=== PATIENT | male | born 1980 | race Caucasian/White ===

== ENCOUNTER 2024-02-01 20:50 | Emergency (ER) | payer SELFPAY ==
--- NOTE | 2024-02-01 21:09 | ED ---
CPR HPI - General Chief Complaint: Cardiac Arrest/CPR Stated Complaint: Cardiac Arrest Time Seen by Provider: 02/01/24 21:02 Source: EMS Mode of arrival: EMS Limitations: no limitations - History of Present Illness Initial Comments: Patient is a 43-year-old gentleman presenting via EMS as a transfer from [facility] for cardiac arrest. Per report from [facility], Dr. Yen, EMS was called for shortness of breath and upon arrival to the patient's home he is to be in cardiac arrest. Patient received 2 rounds of CPR prior to arrest but viable in the hospital. ROSC was achieved and then here he received 3-4 more rounds of CPR for [place] ED. Transferring ER physician put patient on epi and nor epi drip. Patient does have a defibrillator in place. Patient was transferred with an Igel for airway. Reported to be "breathing around the ideal" at time of transfer. I was called again by Dr. Yen regarding patient's labs, stating that patient was noted of hyperkalemia with a potassium greater than 7 and seem to be in acute renal failure with a GFR of 15. Note to the ED, proximately 20 minutes prior to arrival patient went to cardiac arrest again. Patient received another 3-4 rounds of CPR and doses of epi, patient was in asystole and at 1 point in PEA but ROSC was never achieved. By the time the patient arrived to the emergency department he was still pulseless, brownish emesis was coming out from around his airway. - Related Data Allergies Allergy/AdvReac Type Severity Reaction Status Date / Time Unable to Assess Allergy Verified 02/01/24 23:45 Review of Systems ROS Statement: Those systems with pertinent positive or pertinent negative responses have been documented in the HPI. ROS Other: All systems not noted in ROS Statement are negative. Limitations: ROS unobtainable due to patients medical condition Past Medical History Past Medical History: Unable to Obtain History of Any Multi-Drug Resistant Organisms: Unobtainable Past Surgical History: Unable to Obtain Past Psychological History: Unable to Obtain Smoking Status: Unknown if ever smoked Past Alcohol Use History: Unable to Obtain Past Drug Use History: Unable to Obtain General Exam - General Exam Comments Initial Comments: PE: CONSTITUTIONAL: Ill appearing, pale, I gel in place, brown emesis in oropharynx and around I gel, unresponsive SKIN: Pale, mottling of the lower extremities EYES: Pupils round, fixed and dilated nonreactive HENT: Normocephalic, atraumatic, Igel in place NECK: , Normal appearance, atraumtic PULMONARY: Equal chest rise and fall with bagging, no spontaneous respirations CARDIOVASCULAR: No pulses palpable, asystole, pale extremities GASTROINTESTINAL: non-distended MUSCULOSKELETAL: Extremities have no gross deformity, no edema, redness, or swelling. NEUROLOGIC:_Unable to assess, unresponsive PSYCHIATRIC:[ unable to assess Unable to assess_ Limitations: no limitations Medical Decision Making - Medical Decision Making Was pt. sent in by a medical professional or institution (, PA, PHYSICS TEACHER, urgent care, hospital, or [place] health care facility...) When possible be specific @ -Patient was transferred from [facility] in [place], I discussed case with Dr. Yen, transferring physician Did you speak to anyone other than the patient for history (EMS, parent, family, police, friend...)? What history was obtained from this source @ -See above, additionally spoke with EMS personnel Did you review nursing and triage notes (agree or disagree)? Why? @ -I reviewed and agree with nursing and triage notes Were old charts reviewed (outside hosp., previous admission, EMS record, old EKG, old radiological studies, urgent care reports/EKG's, [place] health care facility records)? Report findings @ -No old charts available for review Differential Diagnosis (chest pain, altered mental status, abdominal pain women, abdominal pain men, vaginal bleeding, weakness, fever, dyspnea, syncope, headache, dizziness, GI bleed, back pain, seizure, CVA, palpatations, mental health, musculoskeletal)? @ -Differenital diagnosis remains broad over top considerations include cardiac arrest secondary to acute renal failure, respiratory arrest, heart failure, drug overdose, this is not all inclusive list EKG interpreted by me (3pts min.). @ -not performed X-rays interpreted by me (1pt min.). @ -None done CT interpreted by me (1pt min.). @ -None done U/S interpreted by me (1pt. min.). @ -None done What testing was considered but not performed or refused? (CT, X-rays, U/S, labs)? Why? @ -None What meds were considered but not given or refused? Why? @ -Considered calcium gluconate, additional IV bicarb Did you discuss the management of the patient with other professionals (professionals i.e. , PA, PHYSICS TEACHER, lab, RT, psych nurse, social welfare clerk, beef trimmer, teacher, medical officer, mental health case manager)? Give summary @ -No Was smoking cessation discussed for >3mins.? @ -No Was critical care preformed (if so, how long)? @ -No Were there social determinants of health that impacted care today? How? (Homelessness, low income, unemployed, alcoholism, drug addiction, transportat ion, low edu. Level, literacy, decrease access to med. care, retirement, rehab)? @ -No Was there de-escalation of care discussed even if they declined (Discuss DNR or withdrawal of care, Hospice)? @ -No What co-morbidities impacted this encounter? (DM, HTN, Smoking, COPD, CAD, Cancer, CVA, ARF, Chemo, Hep., AIDS, mental health diagnosis, sleep apnea, morbid obesity)? @ -None Was patient admitted / discharged? Hospital course, mention meds given and route, prescriptions, significant lab abnormalities, going to OR and other pertinent info. @ Discharged to [facility] [place]- Pt presented via EMS in full cardiac arrest. Was initially seen at transferring facility, [facility] after paramedics were called to the patient's home for shortness of breath and found the patient cardiac arrest. Patient received 2 rounds CPR prior to arrival in [place]'s emergency department. On arrival there patient had pulses but then pulses were lost and received 4 rounds CPR. Patient was placed on epi and nor epi drip. Found to have elevated potassium suspected be in acute renal failure. Pt was reported to be breathing over his Igel airway prior to transport. 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 Patient seen on arrival. Igel in place, actively being bagged, brown emesis coming from airway, ANUSHA device in place performing compressions. Patient moved to cot. No pulses, in PEA on first pulse check. Airway suctioned, patient was able to be provided with assisted ventilations, ALCS followed. Aystole and PEA x 3 additional pulse checks/rounds CPR. Given prolonged length of downtime (est ~30 minutes) without ROSC, patient outcome likely to be poor and ROSC unlikely. ALEJANDRA called at 20:59. Undiagnosed new problem with uncertain prognosis? @ -No Drug Therapy requiring intensive monitoring for toxicity (Heparin, Nitro, Insulin, Cardizem)? @ -No Were any procedures done? @ -CPR Diagnosis/symptom? @ -Cardiac arrest Acute, or Chronic, or Acute on Chronic? @ -ACute Uncomplicated (without systemic symptoms) or Complicated (systemic symptoms)? @ -Complicated Side effects of treatment? @ -No Exacerbation, Progression, or Severe Exacerbation? @ -No Poses a threat to life or bodily function? How? (Chest pain, [place], [place], pneumonia, PE, COPD, DKA, ARF, appy, cholecystitis, CVA, Diverticulitis, Homicidal, Suicidal, threat to staff... and all critical care pts) @ -Yes Disposition Clinical Impression: Cardiac arrest Disposition: Condition: Undetermined Is patient prescribed a controlled substance at d/c from ED?: No Referrals: None,Stated [Primary Care Provider] - 1-2 days Preliminary Cause of : Cardiac arrest
== END 2024-02-01 23:33 | disposition expired ==
LOC: EC 20:50
DX: I46.9 Cardiac arrest, cause unspecified (principal)
CPT/HCPCS: 92950; 99285